=== PATIENT | female | born 1955 | race Caucasian/White ===

== ENCOUNTER 2020-10-21 09:49 | Outpatient (REF) | payer MEDICARE, SELFPAY ==
[2020-10-21 12:21] LABS: Cholesterol 252 mg/dL; HDL Cholesterol 58 mg/dL; LDL Cholesterol Calculated 179 mg/dl; Triglycerides 78 mg/dL
== END 2020-10-21 09:50 | disposition home or self-care (01) ==
LOC: HO.MANLDS 09:49
PROVIDERS: PCP Internal Medicine; Visit Provider Physician Assistant
DX: E78.5 Hyperlipidemia, unspecified (principal)
CPT/HCPCS: 36415; 80061

== ENCOUNTER 2021-08-04 16:19 | Outpatient (REF) | payer MEDICARE, SELFPAY ==
[2021-08-04 18:05] LABS: Appearance Urine CLEAR; Color Urine STRAW; Glucose Urine UA NEG (NEG); Leukocyte Esterase Urine NEG (NEG); Nitrite Urine NEG (NEG); Specific Gravity - Urine <= 1.005 (1.005-1.025); Urine Blood NEG (NEG); Urine Ketones NEG (NEG); Urine Protein NEG (NEG-TRACE)
[2021-08-04 18:39] LABS: Free T4 (Free Thyroxine) 1.19 ng/dL (0.71-1.85); Thyroid Stimulating Hormone 0.76 uIU/mL (0.32-4.0)
== END 2021-08-04 16:20 | disposition home or self-care (01) ==
LOC: HO.MANLDS 16:19
PROVIDERS: PCP Physician Assistant; Visit Provider Physician Assistant
DX: E03.8 Other specified hypothyroidism (principal); R30.0 Dysuria
CPT/HCPCS: 36415; 81003; 84439; 84443

== ENCOUNTER 2021-08-09 09:35 | Outpatient (REF) | payer MEDICARE, SELFPAY ==
[2021-08-09 11:03] LABS: MANUAL DIFF FLAG NO
[2021-08-09 11:15] LABS: Basophils Percent Auto 0.2 % (0-2); Eosinophils Absolute Auto 0.2 X10*3/uL (0.0-0.4); Eosinophils Percent Auto 3.5 % (0-4); Hematocrit 35.3 % (37.0-47.0); Hemoglobin 11.4 g/dl (12.0-16.0); Imm Gran Abs Auto 0.01 X10*3/uL (0.00-0.03); Imm Gran Pct Auto 0.2 % (0.0-0.4); Lymphocytes Absolute Auto 1.3 X10*3/uL (1.2-4.9); Lymphocytes Percent Auto 28.1 % (20-40); Mean Corpuscular HGB Conc 32.3 g/dl (31.0-35.0); Mean Corpuscular Hemoglobin 31.5 pg (27.0-33.0); Mean Corpuscular Volume 97.5 fL (80.0-98.0); Mean Platelet Volume 9.9 fL (9.4-12.3); Monocytes Absolute Auto 0.4 X10*3/uL (0.1-1.2); Monocytes Percent Auto 8.8 % (2-11); Neutrophils Absolute Auto 2.7 x10*3/uL (2.0-8.3); Neutrophils Percent Auto 59.2 % (45-73); Platelet Count 245 X10*3/uL (160-400); Red Blood Count 3.62 X10*6/uL (4.20-5.50); Red Cell Distribution Width 13.7 % (11.0-16.0); White Blood Count 4.5 X10*3/uL (4.8-10.8)
[2021-08-09 11:18] LABS: Alanine Aminotransferase 14 U/L (0-31); Albumin Level 3.9 g/dL (3.5-5.0); Alkaline Phosphatase 45 U/L (39-117); Anion Gap 10 (12-20); Aspartate Amino Transferase 17 U/L (5-31); Bilirubin Total 0.6 mg/dL (0.0-1.0); Blood Urea Nitrogen 20 mg/dL (9-16); Calcium 9.3 mg/dL (8.4-10.2); Carbon Dioxide 30 mmol/L (22-29); Chloride 104 mmol/L (96-108); Cholesterol 256 mg/dL; Estimated Glomerular Filt Rate > 60; Glucose Fasting 84 mg/dL (60-99); HDL Cholesterol 65 mg/dL; LDL Cholesterol Calculated 174 mg/dl; Potassium 4.3 mmol/L (3.3-5.1); Sodium 140 mmol/L (135-145); Total Protein 6.3 g/dL (6.5-8.0); Triglycerides 86 mg/dL
== END 2021-08-09 09:36 | disposition home or self-care (01) ==
LOC: HO.MANLDS 09:35
PROVIDERS: PCP Physician Assistant; Visit Provider Physician Assistant
DX: Z00.00 Encounter for general adult medical examination without abnormal findings (principal); Z13.6 Encounter for screening for cardiovascular disorders
CPT/HCPCS: 36415; 80053; 80061; 85025

== ENCOUNTER 2021-11-15 09:54 | Outpatient (REF) | payer MEDICARE, SELFPAY | END 2021-11-15 09:55 | disposition home or self-care (01) | LOC: HO.MANLNP 09:54 | PROVIDERS: PCP Physician Assistant; Visit Provider Physician Assistant | DX: R30.0 Dysuria (principal) | CPT/HCPCS: 87086 ==

== ENCOUNTER 2023-12-06 14:17 | Outpatient (REF) | payer MEDICARE, SELFPAY ==
[2023-12-06 17:23] LABS: MANUAL DIFF FLAG NO
[2023-12-06 17:35] LABS: Basophils Percent Auto 0.3 % (0-2); Eosinophils Absolute Auto 0.2 X10*3/uL (0.0-0.4); Eosinophils Percent Auto 2.5 % (0-4); Hematocrit 34.1 % (37.0-47.0); Hemoglobin 11.5 g/dl (12.0-16.0); Imm Gran Abs Auto 0.02 X10*3/uL (0.00-0.03); Imm Gran Pct Auto 0.3 % (0.0-0.4); Lymphocytes Absolute Auto 1.9 X10*3/uL (1.2-4.9); Mean Corpuscular HGB Conc 33.7 g/dl (31.0-35.0); Mean Corpuscular Hemoglobin 32.5 pg (27.0-33.0); Mean Corpuscular Volume 96.3 fL (80.0-98.0); Mean Platelet Volume 10.3 fL (9.4-12.3); Monocytes Absolute Auto 0.4 X10*3/uL (0.1-1.2); Monocytes Percent Auto 6.8 % (2-11); Neutrophils Absolute Auto 3.8 x10*3/uL (2.0-8.3); Neutrophils Percent Auto 60.1 % (45-73); Platelet Count 236 X10*3/uL (160-400); Red Blood Count 3.54 X10*6/uL (4.20-5.50); Red Cell Distribution Width 13.5 % (11.0-16.0); White Blood Count 6.3 X10*3/uL (4.8-10.8)
[2023-12-06 18:10] LABS: Alanine Aminotransferase 12 U/L (0-31); Albumin Level 3.8 g/dL (3.5-5.0); Alkaline Phosphatase 47 U/L (39-117); Anion Gap 11 (12-20); Aspartate Amino Transferase 16 U/L (5-31); Bilirubin Total 0.3 mg/dL (0.0-1.0); Blood Urea Nitrogen 23 mg/dL (9-16); Calcium 9.2 mg/dL (8.4-10.2); Carbon Dioxide 28 mmol/L (22-29); Chloride 105 mmol/L (96-108); Estimated Glomerular Filt Rate 60; Glucose Random 79 mg/dL (60-115); Potassium 4.5 mmol/L (3.3-5.1); Sodium 139 mmol/L (135-145); Total Protein 6.7 g/dL (6.5-8.0)
== END 2023-12-06 14:18 | disposition home or self-care (01) ==
LOC: HO.MANLDS 14:17
PROVIDERS: Visit Provider Physician Assistant
DX: Z00.00 Encounter for general adult medical examination without abnormal findings (principal)
CPT/HCPCS: 36415; 80053; 85025

== ENCOUNTER 2025-07-22 11:36 | Outpatient (REF) | payer MEDICARE, SELFPAY ==
--- OUTSIDE RECORDS SUMMARY | 2010-05-05 23:00 | XMS_ITS | Encounter Summary ---
Author Organization [facility] Address [address] [place] [address] [place] [address] Phone Care Team Providers Care Fraud Examiner Name Role Phone Unavailable Primary Care Provider Unavailabl e Encounter Details Date Type Department Care Team (Late Contact Info) Description 05/06/2010 Hospital Encounter [facility],Outside Imaging [address] [place] [address] Unknown, Unknown, MD Social History Tobacco Use Types Packs/Day Years Used Date Smoking Tobacco: Never Smokeless Tobacco: Never Alcohol Use Standard Drinks/Week Comments Yes 1 (1 standard drink = 0.6 oz pur e alcohol) once a week Education Answer Date Recorded Are you interested in more education? Not on park e 12/29/2022 Are you concerned about learning? Not on file 12/29/2022 No 12/29/2022 No 12/29/2022 Digital Access Answer Date Recorded No 01/30/2023 No 01/30/2023 Reliable internet access at home? Not on file 01/30/2023 Device with a working camera? Not on file Comments No Sex and Gender Information Value Date Recorded Sex Assigned at Not on file Legal Sex Female 7:59 PM EST Gender Identity Not on file Sexual Orientation Not on file documented as of this encounter Plan of Treatment Upcoming Encounters Date Type Department Care Team (Late st Contact Info) Description 09/08/2025 9:00 AM EST Office Visit [facility] Orthopedics & Sports Medicine [address] [place] [address] Arminda Guillen MD 4 [facility] [place] [address] 11/27/2025 10:15 AM EDT Office Visit [facility]ics & Sports Medicine [address] [place] [address] Arminda Guillen MD [address] [place] [address] Orthoped[facility] & [place], [place] [address] [email or web address] documented as of this encounter Procedures Procedure Name Priority Date/Time Associated Diagnosis Comments MRI UPPER EXTREMITY OUTSIDE (NO INTERPRETATION) Routine 05/06/2010 12:00 AM EDT documented in this encounter Results * MRI Outside Upper Extremity (No Interpretation) (05/06/2010 12:00 AM EDT) Narrative SYSTEMGENERATED, DOCUMENTATION - 04/13/2022 1:52 PM EDT This study is for PACS storage only and not for interpretation. us Unknown Unknown MD [facility] OUTSIDE IMAGING W/OUT INT ERPRETATION Final Result documented in this encounter Visit Diagnoses Not on filedocumented in this encounter Additional Source Comments The information contained in this document represents components of the legal health record. It is not the complete legal health record.[facility]
[2025-07-22 13:59] LABS: MANUAL DIFF FLAG NO
[2025-07-22 14:31] LABS: Hematocrit 33.7 % (37.0-47.0); Hemoglobin 10.9 g/dl (12.0-16.0); Imm Gran Abs Auto 0.02 X10*3/uL (0.00-0.03); Imm Gran Pct Auto 0.4 % (0.0-0.4); Lymphocytes Absolute Auto 1.9 X10*3/uL (1.2-4.9); Mean Corpuscular HGB Conc 32.3 g/dl (31.0-35.0); Mean Corpuscular Hemoglobin 32.0 pg (27.0-33.0); Mean Corpuscular Volume 98.8 fL (80.0-98.0); NRBC Abs Auto 0.000 X10*3/uL (0.0-0.012); NRBC Pct Auto 0.0 /100WBC (0.0-0.2); Platelet Count 234 X10*3/uL (160-400); Red Blood Count 3.41 X10*6/uL (4.20-5.50); White Blood Count 5.3 X10*3/uL (4.8-10.8)
[2025-07-22 14:44] LABS: Alanine Aminotransferase 17 U/L (0-31); Albumin Level 4.0 g/dL (3.5-5.0); Alkaline Phosphatase 51 U/L (39-117); Anion Gap 10 (12-20); Aspartate Amino Transferase 23 U/L (5-31); Blood Urea Nitrogen 22 mg/dL (9-16); Calcium 9.1 mg/dL (8.4-10.2); Carbon Dioxide 26 mmol/L (22-29); Chloride 107 mmol/L (96-108); Cholesterol 208 mg/dL (<200); Estimated Glomerular Filt Rate 55; HDL Cholesterol 54 mg/dL (>40); Potassium 4.0 mmol/L (3.3-5.1); Sodium 139 mmol/L (135-145); Total Protein 6.5 g/dL (6.5-8.0); Triglycerides 81 mg/dL (<150)
[2025-07-22 14:59] LABS: Free T4 (Free Thyroxine) 1.10 ng/dL (0.71-1.85)
--- OUTSIDE RECORDS SUMMARY | 2025-07-23 02:38 | XMS_ITS | Encounter Summary ---
Author Organization [facility] Address [address] [place] [address] Phone Care Team Providers Care Closing Specialist Name Role Phone Linh Marcial Fuentes DO Primary Care Provider [phone] Marcial Melton DO Unavailable Tika Fitzgerald MINIATURE SET BUILDER Unavailable Virgie Lewis MINIATURE SET BUILDER Unavailable [phone] Erin Scott MINIATURE SET BUILDER Unavailable Stacy Schneider MINIATURE SET BUILDER Unavailable [phone] Jeannette Pacheco MD Unavailable Luz Maria Pro MINIATURE SET BUILDER Unavailable [phone] Anai Troncoso MINIATURE SET BUILDER Unavailable [phone] Mracial Melton DO Unavailable Marcial Melton DO Primary Care Provider [phone] Encounter Details Date Type Department Care Team (Late st Contact Info) Description 05/22/2019 Procedure Pass OR Admitting Dept - Virtual Department [address] [place] [address] Social History Tobacco Use Types Packs/Day Years Used Date Smoking Tobacco: Never Smokeless Tobacco: Never Alcohol Use Standard Drinks/Week Comments Yes 1 (1 standard drink = 0.6 oz pur e alcohol) once a week Comments No Sex and Gender Information Value Date Recorded Sex Assigned at Not on file Legal Sex Female 7:59 PM EST Gender Identity Not on file Sexual Orientation Not on file documented as of this encounter Plan of Treatment Upcoming Encounters Date Type Department Care Team (Late st Contact Info) Description 09/08/2025 9:00 AM EST Office Visit [facility] Orthopedics & Sports Medicine [address] [place] [address] Arminda Guillen MD [address] [place] [address] Orthopedics Sports [facility], [place] [address] 11/27/2025 10:15 AM EDT Office Visit [facility] Orthopedics & Sports [address] [address] Arminda Guillen MD [address] [place] [address] Orthopedics Sports [facility], [place] [address] documented as of this encounter Visit Diagnoses Not on filedocumented in this encounter Care Teams Closing Specialist Relationship Specialty Start Date End Date Marcial Melton DO PCP - General 03/04/14 04/02/25 Marcial Melton DO [address] [place] [address] PCP - General Internal Medicine 04/03/25 Marcial Melton DO Historical LMR Provider 06/25/17 Tika Fitzgerald NP [address] [address] Historical LMR Provider 06/25/17 2 Virgie Lewis, MINIATURE SET BUILDER [address] [place] [address] [email or web address] Historical LMR Provider 06/25/17 Erin Scott, MINIATURE SET BUILDER [address] [place] [address] [email or web address] Historical LMR Provider 06/25/17 2 Stacy Schneider, MINIATURE SET BUILDER [address] [place] [address] Historical LMR Provider 06/25/17 2 Jeannette Pacheco MD [address] [place] [address], [address] [place] [address] Historical LMR Provider 06/25/17 09/11/21 Luz Maria Pro NP 30 [place] [address] Historical LMR Provider 06/25/17 2 Anai Troncoso NP [address] [place] [address] Historical LMR Provider 06/25/17 2 Marcial Melton DO [address] [place] [address] [email or web address] Insurance Assigned Provider 01/05/19 10/04/19 documented as of this encounter Additional Source Comments The information contained in this document represents components of the legal health record. It is not the complete legal health record.[facility]
--- OUTSIDE RECORDS SUMMARY | 2025-07-23 02:39 | XMS_ITS | Encounter Summary ---
Author Organization [facility] Address [address] [place] [address] Phone Care Team Providers Care Paralegal Instructor Name Role Phone Linh Marcial Fuentes DO Primary Care Provider [phone] Marcial Melton DO Unavailable Tika Fitzgerald EXPERIENCE SPECIALIST Unavailable [phone] Virgie Lewis EXPERIENCE SPECIALIST Unavailable [phone] Erin Scott EXPERIENCE SPECIALIST Unavailable Stacy Schneider EXPERIENCE SPECIALIST Unavailable [phone] Jeannette Pacheco MD Unavailable Luz Maria Pro EXPERIENCE SPECIALIST Unavailable [phone] Anai Troncoso EXPERIENCE SPECIALIST Unavailable Gabrielledaphnie Marcial Fuentes DO Unavailable Bigda, Marcial Fuentes DO Primary Care Provider [phone] Encounter Details Date Type Department Care Team (Latest Contact Info) Description 10/11/2018 Transcribe Orders [facility] Main [address] [place] [address] Jamaica Berry PA-C [address] Ismael. [address] [place] [address] [email or web address] Routine medical exam (Primary Dx) Social History Tobacco Use Types Packs/Day Years [...] Description 09/08/2025 9:00 AM EST Office Visit [facility] Orthopedics & Sports Medicine [address] [place] [address] Arminda Guillen MD [address] [place] [address] Orthopedics Sports [facility], [place] [address] [email or web address] 11/27/2025 10:15 AM EDT Office Visit [facility] Orthopedics & Sports [address] [address] Arminda Guillen MD [address] [place], [place] [address]s Sports [facility], [place] [address] [email or web address] documented as of this encounter Results * Free T4 (10/11/2018 9:25 AM EST) FREE T4 1.6 0.9 - 1.7 ng/dL [facility] Blood 10/11/2018 9:25 AM EST 10/11/2018 9:31 AM EST December Jamal SIMON LAB BLOOD BKR ORDERABLES Fin al Result [facility] [address] [place] [address] * TSH (10/11/2018 9:25 AM EST) TSH 1.25 0.27 - 4.20 uIU/mL [facility] Blood 10/11/2018 9:25 AM EST 10/11/2018 9:31 AM EST [place] Jamal MULLERKevin LAB BLOOD BKR ORDERABLES Fin al Result Performing Organization Address City/[facility]/ZIP Co de Phone Number [address] [address] * 25-OH vitamin D (10/11/2018 9:25 AM EST) 25 [place] VIT D (TOTAL) 59 30 - 60 ng/mL [facility] Blood 10/11/2018 9:25 AM EST 10/11/2018 9:31 AM EST [facility] LAB BLOOD BKR ORDERABLES Fin al Result Performing Organization Address [facility] de Phone Number [address] [address] * (ABNORMAL) Lipid panel (10/11/2018 9:25 AM EST) HDL 60 mg/dL [facility] Comment: Interpretation <40 mg/dL: Low HDL cholesterol (major risk factor for CHD) Greater than or equal to 60 mg/dL: High HDL cholesterol ( negative risk factor for CHD) HDL - cholesterol is affected by a number of factors, e.g. smoking, excerise, hormones, sex and age. CHOLESTEROL 238 0 - 240 mg/dL [facility] TRIGLYCERIDES 73 30 - 160 mg/dL [facility] LDL 163(H) 50 - 129 mg/dL [facility] Comment: LDL levels in terms of risk for coronary heart disease: <100 mg/dL: Optimal 100-129 mg/dL: Near or above optimal 130-159 mg/dL: Borderline high 160-189 mg/dL: High >190 mg/dL: Very High CARDIAC RISK RATIO 4.0 3.3 - 4.4 C [facility] Blood 10/11/2018 9:25 AM EST 10/11/2018 9:31 AM EST [facility] Jamal MULLER LAB BLOOD BKR ORDERABLES Fin al Result [facility] [address] [place] [address] * (ABNORMAL) CBC and differential (10/11/2018 9:25 AM EST) WBC 4.03 3.40 - 11.20 K/uL [facility] RBC 3.54(L) 3.80 - 4.80 M/uL [facility] HGB 11.1(L) 12.0 - 15.0 g/dL [facility] HCT 33.5(L) 36.0 - 46.0 % [facility] PLT 247 130 - 400 K/uL [facility] MCV 94.6 79.0 - 98.0 fL [facility] MCH 31.4 27.0 - 34.8 pg [facility] MCHC 33.1 31.5 - 36.0 g/dL [facility] RDW 13.5 10.8 - 14.6 % [facility] MPV 10.2 9.4 - 12.4 fl [facility] NRBC 0.00 0.00 /100 WBCs [facility] ABSOLUTE NRBC 0.00 0.00 K/uL [facility] DIFF METHOD Auto [facility] NEUTS 46.0 45.30 - 77.70 % [facility] LYMPHS 41.7(H) 12.30 - 39.70 % [facility] MONOS 7.9 4.10 - 12.80 % [facility] EOS 3.5 0 - 7.2 % [facility] BASOS 0.7 0 - 2.80 % [facility] Granulocytes, immature (%) 0.2 0.0 - 0.9 % [facility] ABSOLUTE NEUTS 1.85 1.40 - 7.70 K/uL [facility] ABSOLUTE LYMPHS 1.68 0.60 - 3.20 K/uL [facility] ABSOLUTE MONOS 0.32 0.11 - 0.59 K/uL [facility] ABSOLUTE EOS 0.14 0.01 - 0.50 K/uL [facility] ABSOLUTE BASOS 0.03 0.00 - 0.08 K/uL [facility] Granulocytes, immature 0.01 0.00 - 0.05 K/uL [facility] Blood 10/11/2018 9:25 AM EST 10/11/2018 9:31 AM EST us December Jamal PA-C LAB BLOOD BKR ORDERABLES Fin al Result Performing Organization Address City/[facility]/ZIP Co de Phone Number [address] [address] * (ABNORMAL) Comprehensive metabolic panel (10/11/2018 9:25 AM EST) SODIUM 141 133 - 146 mmol/L [facility] POTASSIUM 4.3 3.3 - 5.1 mmol/L [facility] CHLORIDE 100 96 - 108 mmol/L [facility] CO2 29 21 - 35 mmol/L [facility] BUN 20(H) 6 - 19 mg/dL [facility] CREATININE 0.80 0.5 - 1.5 mg/dL [facility] GLUCOSE 81 70 - 99 mg/dL [facility] ALBUMIN 4.2 3.9 - 4.8 g/dL [facility] TOTAL PROTEIN 6.4(L) 6.5 - 8.0 g/dL [facility] CALCIUM 9.4 8.4 - 10.3 mg/dL [facility] ALKALINE PHOSPHATASE 41 39 - 117 U/L [facility] TOTAL BILIRUBIN 0.4 0.0 - 1.2 mg/dL [facility] AST 16 0 - 37 U/L [facility] ALT 10 0 - 40 U/L [facility] GLOBULIN 2.2 1 - 4.8 g/dL [facility] EGFR 77 >59 mL/min/1.7 3m2 [facility] Comment:If patient is black, multiply result by 1.159. Estimated glomerular filtration rate calculated using the CKD-EPI equation. ANION GAP 16 10 - 20 mmol/L [facility] Blood 10/11/2018 9:25 AM EST 10/11/2018 9:31 AM EST December Jamal PA-C LAB BLOOD BKR ORDERABLES Fin al Result [address] [place] [address] * Hepatitis C antibody, qualitative (10/11/2018 9:25 AM EST) HCV Negative Negative [facility] Comment: This is a screening test and should be confirmed with molecular testing Blood 10/11/2018 9:25 AM EST 10/11/2018 9:31 AM EST December Jamal SIMON LAB BLOOD BKR ORDERABLES Fin al Result [facility] [address] [place] [address] documented in this encounter Visit Diagnoses Diagnosis Routine medical exam- Primary Routine general medical examination at a health care facility documented in this encounter Care Teams Paralegal Instructor Relationship Specialty Start Date End Date Marcial Melton DO PCP - General 03/04/14 04/02/25 Marcial Melton DO [address] [place] [address] PCP - General Internal Medicine 04/03/25 Marcial Melton DO Historical LMR Provider 06/25/17 Tika Fitzgerald NP [address] [place] [address] Historical LMR Provider 06/25/17 2 Virgie Lewis NP [address] [place] [address] Historical LMR Provider 06/25/17 Erin Scott, EXPERIENCE SPECIALIST [address] [place] [address] [email or web address] Historical LMR Provider 06/25/17 2 Stacy Schneider, EXPERIENCE SPECIALIST [address] [place] [address] Historical LMR Provider 06/25/17 2 Jeannette Pacheco MD [address] [place] [address], [address] [place] [address] Historical LMR Provider 06/25/17 09/11/21 Luz Maria Pro NP [address] [place] [address] Historical LMR Provider 06/25/17 2 Anai Troncoso NP [address] [place] [address] Historical LMR Provider 06/25/17 2 Marcial Melton DO [address] [place] [address] Insurance Assigned Provider 01/05/19 10/04/19 documented as of this encounter Additional Source Comments The information contained in this document represents components of the legal health record. It is not the complete legal health record.[facility]
--- OUTSIDE RECORDS SUMMARY | 2025-07-23 02:39 | XMS_ITS | Continuity of Care Document ---
Author Organization [facility], [facility] Address [address] [place] [address] Assessment No assessment recorded. Plan of Treatment Reminders Order Date Submit Date Provider Last Modified By Organization Details Last Modified Time Details Appointments ANNUAL EXAM 2025 01:30P M RENZO GRAHAM Not available Not available Not available Lab None recorded. Referral None recorded. Procedures None recorded. Surgeries None recorded. Imaging XR, lumbosacr al spine, 2 or 3 view 2024 025 [email or web address] [facility], [address] [place], [address], 07/22/2025 15:08:28 XR, hip + pelvis, bilateral , 3 or 4 view 2024 025 [email or web address] [facility], [address] [place], [address], 07/22/2025 15:08:28 Medication Orders None recorded. Patient TargetsNo targets recorded. Patient InstructionsNo instructions recorded. Reason for Referral None Reported. Problems Name Problem SNOMED Code Status Onset Date Resolution Date Notes Provider Name and Address Organization Details Recorded Time Polyp of sigmoid colon 663768571 Active 2016 LORIE Berry [address] [place], [address], [facility] 9 12:09:22 Hashimot o thyroidi tis 71085672 Active 2018 Leora hill [facility] 9 13:57:59 Seasonal affectiv e disorder 866634217 Active 2018 [facility]ressio n [facility] 9 13:58:56 Joint injury 040211605 Active 2018 B/L SI joint strain [facility] 9 14:01:52 Asthma 155165214 Active 2018 2/2 allergies - Controlle d Leorajessica Stafford [facility] 9 14:02:41 Basal cell carcinom a of skin 257229635 Active 2018 Leorajessica Stafford [facility] 9 14:02:53 Hyperlip idemia 10668049 Active 2018 Leorajessica Malloyadam [facility] 9 14:03:01 Anxiety 74613232 Active 2018 Leora Gamaadam [facility] 9 14:03:09 Weight loss 53616662 [facility] 9 14:14:53 Tinnitus 19346715 Active 2018 Leora Gamaadam [facility] 9 14:15:49 Osteopen ia 827413639 Active 2018 Leorajessica Stafford [facility] 9 14:16:02 Osteoart hritis of knee 095535497 Active 2018 Right Leorajessica Stafford [facility] 9 14:16:55 Menopaus e Active 2018 48 years Leorajessica Stafford [facility] 9 14:17:14 Cyst of thyroid 95306062 Active 2018 s/p partial thyroidec pj, found to be benign December LORIE Berry [address] [place], [address], [facility] 9 12:04:12 Hypothyr oidism 35453589 Active 2021 RENZO GRAHAM [address] [place], [address], [facility] 2 15:01:26 Dysuria 64520658 Active 2022 RENZO GRAHAM [address] [place], [address], [facility] 3 11:01:31 COVID-19 026839473 Active 2022 RENZO GRAHAM [address] [place] [address], [address], [facility] 3 15:21:05 Fatigue 64283582 Active 2022 RENZO GRAHAM [address] [place] [address], [address], [facility] 3 15:26:23 Bilatera l tinnitus 10131977280 02 Active 2022 RENZO GRAHAM [address] [place] [address], [address], [facility] 3 16:09:21 Low back pain 128051859 Active 2022 RENZO GRAHAM [address] [place] [address], [address], [facility] 3 16:13:33 Pain of right knee joint 88490058455 4100 Active 2022 RENZO GRAHAM [address] [place] [address], [address], [facility] 3 16:19:18 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 50270778244 9109 Active 2023 RENZO GRAHAM [address] [place] [address], [address], [facility] 4 13:44:40 Overacti ve urinary bladder 240303047 Active 2023 RENZO GRAHAM [address] [place] [address], [address], [facility] 5 13:44:42 Acute urinary tract infectio n 385048883 Active 2023 RENZO GRAHAM [address] [place], [address], [facility] 4 10:40:08 Seasonal allergy 817484435 Active 2024 RENZO GRAHAM [address] [place], [address], [facility] 5 10:37:01 Panic disorder 891432133 Active 2024 RENZO GRAHAM [address] [place], [address], [facility] 5 10:41:34 Sciatica 80379617 Active 2024 RENZO GRAHAM [address] [place], [address], [facility] 5 11:02:51 Acute bacteria l bronchit is 755783405 Active 2024 RENZO GRAHAM [address] [place], [address], [facility] 5 13:42:18 Acute cough Active 2024 RENZO GRAHAM [address] [place], [address], [facility] 5 11:38:32 Acute bronchit is 71135400 Active 2024 RENZO GRAHAM [address] [place], [address], [facility] 5 08:21:18 Tendinit is 47692555 Active 2024 RENZO GRAHAM [address] [place], [address], [facility] 5 11:26:42 Lumbar radiculo zechariah 781340515 Active 2024 RENZO GRAHAM [address] [place], [address], [facility] 5 11:27:20 Problem Notes None recorded. Procedures Surgical History Date Name Laterality Status Provider Name and Address Organization Details Recorded Time 8 Most [facility] 14:43:07 7 [facility] 14:43:48 Imaging Results None recorded. Procedure Notes None recorded. Medical Equipment None Reported. Allergies Allergen ID Allergen Name Allergen Category Reaction Reaction Severity Criticality Documentation Date Start Date Code Code System Note Provider Name and Address Organization Details Recorded Time 2783 amoxicill in medicatio n Not available Not available Not available 10/09/2018 723 RxNorm [facility] 9 13:52:26 2784 Substance with sulfonami de structure and antibacte rial mechanism of action (substanc e) medicatio n nausea Not available Not available 10/09/2018 59977 8003 SNOMED [facility] 9 13:52:40 6347 Macrobid medicatio n Not available Not available Not available 10/05/2022 70819 1 RxNorm RENZO GRAHAM [address] [place], [address], [facility] 3 11:12:31 9720 Bactrim medicatio n Not available Not available Not available 07/22/20252024 22791 9 RxNorm Not Available [employer] - External Data [employer] - prod 5 03:48:09 9723 sulfameth oxazole / trimethop rim medicatio n Not available Not available Not available 07/22/20252019 49916 RxNorm unrec ogniz ed react ion (text : GI Upset , code: 30367 005) (from exter nal sourc e) Not Available [employer] - External Data Service - prod 5 03:49:12 9724 nitrofura ntoin, macrocrys tals / nitrofura ntoin, monohydra te medicatio n Not available Not available Not available 07/22/20252020 46000 2 RxNorm State s in Janua ry 21 after rx for uti had itchi ng all over body Not Available [employer] - External Data Service - prod 5 03:49:12 9725 sulfadiaz ine medicatio n Not available Not available Not available 07/22/20252021 84830 RxNorm Not Available [employer] External Data Service - prod 5 03:49:12 Medications Name Sig Start Date Stop Date Status Note LastModified by Organization Details LastModified Time budesonid e 32 mcg/actua tion nasal spray Take 2 sprays every day by nasal route for 30 days. 07/22 completed Not Available Not Available Not Available diclofena c 3 % topical gel 05/10 completed Not Available Not Available Not Available venlafaxi ne ER 37.5 mg capsule,e xtended release 24 hr 05/10 completed Not Available Not Available Not Available Levoxyl 88 mcg tablet 10/10 completed Not Available Not Available Not Available prednison e 10 mg tablet PLEASE SEE ATTACHED FOR DETAILED DIRECTIO NS 07/22 completed Not Available Not Available Not Available venlafaxi ne ER 75 mg capsule,e xtended release 24 hr TAKE 1 CAPSULE BY MOUTH EVERYDAY AT BEDTIME active Not Available Not Available No t Available doxycycli ne hyclate 100 mg capsule TAKE 1 CAPSULE BY MOUTH TWICE A DAY FOR 10 DAYS 07/22 completed Not Available Not Available Not Available cefuroxim e axetil 250 mg tablet 10/10 completed Not Available Not Available Not Available clindamyc in HCl 300 mg capsule PLEASE SEE ATTACHED FOR DETAILED DIRECTIO NS 12/05 completed Not Available Not Available Not Available hydrocort isone-pra moxine 2.5 %-1 % rectal cream INSERT 1 APPLICAT ION RECTALLY THREE TIMES A DAY 08/04 completed Not Available Not Available Not Available azithromy kayla 250 mg tablet TAKE 2 TABLETS BY MOUTH TODAY, THEN TAKE 1 TABLET DAILY FOR 4 DAYS DIRECTED 07/22 completed Not Available Not Available Not Available meloxicam 15 mg tablet 10/10 completed Not Available Not Available Not Available fluoroura cil 5 % topical cream 08/04 completed Not Available Not Available Not Available Proctocor t 1 % topical cream APPLY A THIN LAYER TO THE AFFECTED AREA(S) BY TOPICAL ROUTE 2 TIMES PER DAY x 7 days 07/28 completed Not Available Not Available Not Available acetamino phen 300 mg-codein e 30 mg tablet TAKE 1 TO 2 TABLETS EVERY 6 HOURS NEEDED FOR PAIN 12/05 completed Not Available Not Available Not Available ciproflox acin 250 mg tablet TAKE 1 TABLET BY MOUTH EVERY 12 HOURS FOR 5 DAYS 12/05 completed Not Available Not Available Not Available ciproflox acin 500 mg tablet TAKE 1 TABLET BY MOUTH EVERY 12 HOURS FOR 10 DAYS 12/25 completed Not Available Not Available Not Available sulfameth oxazole 800 mg-trimet hoprim 160 mg tablet 10/10 completed Not Available Not Available Not Available meloxicam 7.5 mg tablet 03/11 completed Not Available Not Available Not Available levothyro xine 100 mcg tablet TAKE 1 TABLET BY MOUTH 6 DAYS A WEEK active Not Available Not Available No t Available lorazepam 0.5 mg tablet TAKE 1 TABLET BY MOUTH TWICE A DAY NEEDED FOR 15 DAYS active Not Available Not Available No t Available benzonata te 100 mg capsule 10/10 completed Not Available Not Available Not Available cephalexi n 500 mg capsule TAKE 1 CAPSULE BY MOUTH THREE TIMES A DAY FOR 10 DAYS 07/22 completed Not Available Not Available Not Available oxybutyni n chloride ER 5 mg tablet,ex tended release 24 hr TAKE 1 TABLET BY MOUTH EVERY DAY FOR 30 DAYS 12/25 completed Not Available Not Available Not Available codeine 10 mg-guaife nesin 100 mg/5 mL oral liquid Take 10 mL every 4 hours by oral route as needed for 7 days. 05/16 completed Not Available Not Available Not Available mirtazapi ne 15 mg tablet TAKE 1 TABLET EVERY DAY AT BEDTIME *NEEDS APPT FOR FURTHER REFILLS CALL OFFICE* active Not Available Not Available No t Available metoprolo l succinate ER 25 mg tablet,ex tended release 24 hr 1 TABLET EVERY DAY AT BEDTIME active Not Available Not Available No t Available doxepin 5 % topical cream 05/10 completed Not Available Not Available Not Available naproxen 500 mg tablet 10/10 completed Not Available Not Available Not Available nabumeton e 500 mg tablet TAKE 1 TABLET BY MOUTH TWICE A DAY 12/25 completed Not Available Not Available Not Available nitrofura ntoin monohydra te/macroc rystals 100 mg capsule Take 1 capsule every 12 hours by oral route for 7 days. 12/05 completed Not Available Not Available Not Available solifenac in 5 mg tablet TAKE 1 TABLET BY MOUTH EVERY DAY NEEDED 07/22 completed Not Available Not Available Not Available venlafaxi ne ER 75 mg tablet,ex tended release 24 hr 1 po qd 08/04 completed anxiety Not Available Not Available Not Available venlafaxi ne ER 37.5 mg tablet,ex tended release 24 hr 10/10 completed Not Available Not Available Not Available Lipo-Flav onoid Plus 200 mg-100 mg tablet TAKE 1 TABLET BY MOUTH EVERY DAY FOR 30 DAYS 12/05 completed Not Available Not Available Not Available GaviLyte- G 236 gram-22.7 4 gram-6.74 gram-5.86 gram oral solution 10/10 completed Not Available Not Available Not Available Flucelvax Quad 8026-7815 (PF) 60 mcg (15 mcg x 4)/0.5 mL IM syringe 08/04 completed Not Available Not Available Not Available Fluzone High-Dose (PF) 180 mcg/0.5 mL intramusc ular syringe 08/04 completed Not Available Not Available Not Available Fluzone High-Dose Quad (PF) 240 mcg/0.7 mL IM syringe PHARMACY ADMINIST ERED 08/04 completed Not Available Not Available Not Available QuickVue At-Home COVID-19 Test kit REFER TO [employer]ISH[employer] IONS INCLUDED IN PACKAGIN G 12/05 completed Not Available Not Available Not Available Paxlovid 300 mg (150 mg x 2)-100 mg tablets in a dose pack TAKE 3 TABLETS BY MOUTH TWICE A DAY FOR 5 DAYS 12/05 completed Not Available Not Available Not Available Vitals Date Recorded Body height Body mass index (BMI) Body weight Oxygen saturation Oxygen saturation in Arterial blood by Pulse oximetry Heart rate Systolic And Diastolic Provider Name and Address Organization Details Last Updated DateTime 5 161.29 cm 26.3 kg/m2 73951.4 5 g 98 % 98 % 70 /min 108/70 mm[Hg] [facility] 5 11:03:03 Social History Question Answer Notes LastModified by Organizat ion Details LastModified Time Tobacco Smoking Status Never Smoker Not Available [employer] 07/07/2020 03:36:23 What Was The Date Of Your Most Recent Tobacco Screening? 07/22/2025 [email or web address] Information not available 07/22/2025 Sex: Unknown Functional Status Question Answer Note LastModified by Organization D etails LastModified Time Do you or have you ever used any other forms of tobacco or nicotine? No [email or web address] Information not available 08/01/2023 Mental Status None recorded. Family History Relationship Description Onset Age of this Age Resolved Age Notes LastModified by Organization Details LastModified Time Daughter Malignant neoplasm of breast 25 [email or web address] Not available 10/10 12:08:16 Daughter Hodgkin's disease (clinical) 17 [email or web address] Not available 02/2019 12:08:40 Medical History Condition Response Coronary Artery Disease N Other N Gout N Kidney Stones N Blood Diseases N Breast Cancer N Blood Transfusion N COPD N Depression N Lung Disease N Defects or Inherited Disease N Anxiety Disorder N Muscle, Joint, or Bone Problems N Obesity N Vision or Eye Problems N Arthritis N Infertility N Polyps N Mental Disorder N Cancer N Stroke N Varicosities N Endometriosis N Bladder or Kidney Problems N High Cholesterol N Liver Disease N Fibromyalgia N Headaches N Kidney Disease N Allergies/Hayfever N Heart Problems N Hospitalizations N Thyroid Problems N GI Problems N Skin Problems N Eating Disorder N Anemia N MRSA exposure N Constipation N Mental Illness N Ovarian Cancer N Diabetes N Seizures/Epilepsy N Tuberculosis N Congestive Heart Failure (CHF) N Eczema N Diverticulitis N Abuse/Domestic Violence N Asthma N Reflux/GERD N Hepatitis N Heart Disease N Pulmonary Embolism N Hypertension N Osteoporosis N Chicken Pox N Autism Spectrum Disorder (ASD) N Gynecological History Statement/Question Response Most Recent Mammogram 09/19/2017 Obstetrics History GPAL:G 0 P 0 0 0 0 Immunizations Vaccine Type Date Status Note Provider Nam e and Address Organization Details Recorded Time Influenza, split virus, quadrivalent, preservative 1 completed [place] [facility] 07/26/2021 09:05:45 COVID-19, mRNA, LNP-S, PF, 100 mcg/0.5mL dose or 50 mcg/0.25mL dose 1 completed [place] [facility] 07/26/2021 09:06:21 COVID-19, mRNA, LNP-S, PF, 100 mcg/0.5mL dose or 50 mcg/0.25mL dose 1 completed [place] [facility] 07/26/2021 09:06:30 COVID-19, mRNA, LNP-S, PF, 100 mcg/0.5mL dose or 50 mcg/0.25mL dose 1 completed [place] [facility] 07/26/2021 09:06:37 Influenza, split virus, quadrivalent, preservative 8 completed Kait Gencarelle sergio [facility] 03/11/2020 09:26:09 Tdap 3 completed Leora Stafford [facility] 10/02/2018 14:41:47 Past Encounters Encounter ID Performer Location Encounter Start Date Encounter Closed Date Diagnosis/Indication Diagnosis SNOMED-CT Code Diagnosis ICD10 Code Diagnosis IMO Codes Diagnosis Note [id number] Marcial [facility] [address] [facility] [address] 07/22/2025 10:46:41 07/22/2025 15:08:28 Depression screening 172783253 Z13.31 Tendinitis 30387507 M76. 892 7928404 Lumbar radiculopathy 128 781315 M54.16 651556 will set up with PT Health Concerns Section Related Observation LastModified by Organization Detai ls LastModified Time None Recorded Concern Status LastModified by Organization Details LastModified Time None Recorded Payers Encounter Date Sequence Insurance Name Policy Number Policy Plummer Covered Member ID Plummer Member ID Guarantor Name 07/22/2025 2 [place] [id number] Em Meneses [id number] Em Meneses 07/22/2025 1 [place] [facility] Em Meneses [id number] Em Meneses Notes Date Note Type Note Provider Name a nd Address Organization Details Recorded Time 07/22/2025 text/html ROS as noted in the HPI c/o leg and back pain the patient developed lower leg pain and back pain (she was having it prior to her trip to [place]) used ibuprofen and APAP to good effect, but did not last and pain came backL leg; the patient gets pain more in the the upper quadsworse after PT and walking the patient and I discussed optionswill set up with imaging?disc involvement vs tendinitis RENZO GRAHAM [address] [place] [address], [place], [address], [facility] 07/22/2025 11:32:28 OBGyn Episode No OBEpisode recorded.
--- OUTSIDE RECORDS SUMMARY | 2025-07-23 02:40 | XMS_ITS | Encounter Summary ---
Author Organization [facility] Address [address] [place] [address] Phone Care Team Providers Care Digital Print Operator Name Role Phone Linh Marcial Fuentes DO Primary Care Provider [phone] Marcial Melton DO Unavailable Tika Fitzgerald HYDRO GENERATION SUPERVISOR Unavailable Virgie Lewis HYDRO GENERATION SUPERVISOR Unavailable [phone] Erin Scott HYDRO GENERATION SUPERVISOR Unavailable Stacy Schneider HYDRO GENERATION SUPERVISOR Unavailable [phone] Jeannette Pacheco MD Unavailable Luz Maria Pro HYDRO GENERATION SUPERVISOR Unavailable [phone] Anai Troncoso HYDRO GENERATION SUPERVISOR Unavailable Marcial Melton DO Unavailable Bigda, Marcial Fuentes DO Primary Care Provider [phone] Encounter Details Date Type Department Care Team (Late st Contact Info) Description 10/10/2018 Ancillary Orders Virtual Department [address] [place], [place] [id number] Jamaica Berry, AURORA Paniagua. [email or web address]. [address] [place] [address] [email or web address] Osteopenia, unspecified location Social History Tobacco Use Types Packs/Day Years [...] Description 09/08/2025 9:00 AM EST Office Visit [facility] [address] [place] [address] Arminda Guillen MD [address] [place] [address] Orthopedics Sports [facility], [place] [address] 11/27/2025 10:15 AM EDT Office Visit [facility] [address] [place] [address] Arminda Guillen MD [address] [place] [address] Orthopedics Sports [facility], [place] [address] [email or web address] documented as of this encounter Results * BD DXA AXIAL (SPINE) WITH HIP (12/26/2018 8:41 AM EDT) Anatomical Region Laterality Modality Bone Density Bone Density 12/26/2018 8:48 AM EDT Impressions 12/26/2018 8:51 AM EDT Continued normal bone mineral density at all 3 measured sites. Mild decrease in right hip BMD. POS -[id number] Narrative 12/26/2018 8:51 AM EDT This is a 63-year-old female who reports no perceived height loss. No history of steroid use or hormone therapy. Daily calcium supplementation. Comparison is made to 04/15/2014. Evaluation of the lumbar spine and hips was performed and felt to be technically adequate. Total bone mineral density in the L1-L4 vertebral bodies was calculated at 1.055 gm/cm2 with a T score of 0.1. This falls within the WHO classification of normal. No significant change from 2013. Total bone mineral density in the right proximal femur was calculated at 0.835 gm/cm2 with a T-score of -0.9 falling within the WHO classification of normal. This is a statistically significant -3.5% decrease BMD since 2013. Total bone mineral density in the left proximal femur was calculated at 0.840 gm/cm2 with a T-score of -0.8 falling within the WHO classification of normal. No significant change from 2013. Procedure Note Bereket Urrutia MD - 12/26/2018 This is a 63-year-old female who reports no perceived heightloss. No history of steroid use or hormone therapy. Daily calcium supplementation. Comparison is made to 04/15/2014. Evaluation of the lumbar spine and hips was performed and felt to betechnically adequate. Total bone mineral density in the L1-L4 vertebral bodies was calculated at1.055 gm/cm2 with a T score of 0.1. This falls within the WHOclassification of normal. No significant change from 2013. Total bone mineral density in the right proximal femur was calculated at0.835 gm/cm2 with a T-score of -0.9 falling within the WHO classificationof normal. This is a statistically significant -3.5% decrease BMD since 2014. Total bone mineral density in the left proximal femur was calculated at0.840 gm/cm2 with a T-score of -0.8 falling within the WHO classificationof normal. No significant change from 2013. IMPRESSION: Continued normal bone mineral density at all 3 measured sites. Milddecrease in right hip BMD. POS -[id number] December Jamal SIMON IMG BD BONE DENSITY DEXA Fin al Result documented in this encounter Visit Diagnoses Diagnosis Osteopenia, unspecified location Osteopenia, unspecified location documented in this encounter Care Teams Digital Print Operator Relationship Specialty Start Date End Date Marcial Melton DO PCP - General 03/04/14 04/02/25 Marcial Melton DO [address] [place] [address] [place] [address] PCP - General Internal Medicine 04/03/25 Marcial Melton DO Historical LMR Provider 06/25/17 Tika Fitzgerald, LORIE [address] [place] [address] Historical LMR Provider 06/25/17 2 Virgie Lewis NP [address] [place] [address] Historical LMR Provider 06/25/17 Erin Scott HYDRO GENERATION SUPERVISOR [address] [place] [address] [email or web address] Historical LMR Provider 06/25/17 2 Stacy Schneider, HYDRO GENERATION SUPERVISOR [address] [place] [address] Historical LMR Provider 06/25/17 2 Jeannette Pacheco MD [address] [place] [address], [address] [place] [address] Historical LMR Provider 06/25/17 09/11/21 Luz Maria Pro HYDRO GENERATION SUPERVISOR [address] [place] [address] Historical LMR Provider 06/25/17 2 Anai Troncoso NP [address] [place] [address] Historical LMR Provider 06/25/17 2 Marcial Melton DO [address] [place] [address] [email or web address] Insurance Assigned Provider 01/05/19 10/04/19 documented as of this encounter Additional Source Comments The information contained in this document represents components of the legal health record. It is not the complete legal health record.[facility]
--- OUTSIDE RECORDS SUMMARY | 2025-07-23 02:40 | XMS_ITS | Data Portability ---
Author Organization [facility], Telehealth Patient Home Address [address] [place] [address] Assessment Encounter Date Assessment Date Assessment LastModified by Organization Details LastModified Time 12/25/2024 12/25/2024 will try herself off of the metoprolol and see if it helps, if not suggested tartrate [email or web address] Not available 12/25/2024 13:52:30 Plan of Treatment Reminders Order Date Submit Date Provider Last Modified By Organization Details Last Modified Time Details Appointments ANNUAL EXAM 2025 01:30P RENZO CAMPBELL Not available Not available Not available Lab CMP, serum or plasma 2024 025 MELANIYANNICK [facility], [address] [place] [address] [place], [address], 12/30/2024 15:48:41 CBC w/ auto diff 2024 025 OMAHA Panda [facility], [address] [place] [address] [place], [address], 12/30/2024 14:39:15 lipid panel, blood 2024 025 OMAHA Mosqueda [facility], [address] [place] [address] [place], [address], 12/30/2024 15:46:52 CBC w/ auto diff 2023 024 [facility], [address] [place] [address], [place], [address], 12/07/2023 11:22:56 CMP, serum or plasma 2023 024 [facility], [address] [facility], [place], [address], 12/07/2023 11:22:56 Referral ENT surgery referral 2022 023 [email or web address], [address] [place], [address], 08/04/2023 08:13:11 physical therapist referral 2022 023 [email or web address], [address] [place], [address], 08/04/2023 08:13:12 Procedures None recorded. Surgeries None recorded. Imaging XR, lumbosacr al spine, 2 or 3 view 2024 025 [email or web address] [facility], [address] [place], [address], 07/22/2025 15:08:28 XR, hip + pelvis, bilateral , 3 or 4 view 2024 025 [email or web address] [facility], [address] [place], [address], 07/22/2025 15:08:28 Medication Orders lorazepam 0.5 mg tablet 2024 025 [facility], [address] [place], [address], 01/28/2025 10:43:18 solifenac in 5 mg tablet 2024 025 [facility], [address] [place], [address], 07/22/2025 11:00:54 nabumeton e 500 mg tablet 2023 024 [email or web address] [facility], [address] [place], [address], 12/25/2024 13:49:53 oxybutyni n chloride ER 5 mg tablet,ex tended release 24 hr 2023 024 [email or web address] [facility], [address] [place], [address], 12/25/2024 13:45:16 Lipo-Flav onoid Plus 200 mg-100 mg tablet 2022 023 [email or web address] [facility], [address] [place], [address], 12/06/2023 13:36:07 budesonid e 32 mcg/actua tion nasal spray 2022 023 [email or web address] [facility]44[facility], [address] [place] [address], [address], 07/22/2025 11:00:09 Patient TargetsNo targets recorded. Patient InstructionsNo instructions recorded. Reason for Referral ENT Surgery Referral for Pete ateral tinnitus Referring Physician: Jane Baldwin, Internal Medicine, Encounter Date: 08/01/2023 Physical Therapist Referral for Low back pain low back pain, related to lumbar sprain and overuse Referring Physician: Jane Baldwin, Internal Medicine, Encounter Date: 08/01/2023 Results Created Date Observation Date Name Description Value Unit Range Abnormal Flag Note LastModifiedBy Organization Detail LastModifiedTime 09/01/2009/01/2023 MAMMsherry Alves digit al, bilat eral No observ ation record ed. [email or web address] [facility] [address], [place], [address], 09/02/2023 09:24:10 09/03/20 24 09/03/2024 MAMMsherry Alves digit al, bilat eral No observ ation record ed. [email or web address] Not Available 2024 09:42:53 Result Notes None recorded. Problems Name Problem SNOMED Code Status Onset Date Resolution Date Notes Provider Name and Address Organization Details Recorded Time Polyp of sigmoid colon 699315170 Active 2016 LORIE Berry [address] [employer], [place], [address], [facility] 9 12:09:22 Hashimot o thyroidi tis 24889187 Active 2018 [facility] 9 13:57:59 Seasonal affectiv e disorder 521043010 Active 2018 Seasonal depressio n [facility] 9 13:58:56 Joint injury 919371332 Active 2018 B/L SI joint strain [facility] 9 14:01:52 Asthma 421037558 Active 2018 2/2 allergies - Controlle d [facility] 9 14:02:41 Basal cell carcinom a of skin 889928535 Active 2018 Leora hill [facility] 9 14:02:53 Hyperlip idemia 79944600 Active 2018 [facility] 9 14:03:01 Anxiety 96073392 Active 2018 [facility] 9 14:03:09 Weight loss 83799771 Active 2018 Leora hill [facility] 9 14:14:53 Tinnitus 04461020 Active 2018 [facility] 9 14:15:49 Osteopen ia 891964993 Active 2018 Leora hill [facility] 9 14:16:02 Osteoart hritis of knee 720689295 Active 2018 Right Leorajessica hill [facility] 9 14:16:55 Menopaus e Active 2018 48 years [facility] 9 14:17:14 Cyst of thyroid 17607611 Active 2018 s/p partial thyroidec pj, found to be benign [place] RASHAUN BerryKELTON [address] [place], [address], [facility] 9 12:04:12 Hypothyr oidism 84124186 Active 2021 RENZO GRAHAM [address] [place], [address], [facility] 2 15:01:26 Dysuria 36633161 Active 2022 RENZO GRAHAM [address] [place], [address], [facility] 3 11:01:31 COVID-19 875059774 Active 2022 RENZO GRAHAM [address] [place], [address], [facility] 3 15:21:05 Fatigue 22548709 Active 2022 RENZO GRAHAM [address] [place], [address], [facility] 3 15:26:23 Bilatera l tinnitus 98724241010 02 Active 2022 RENZO GRAHAM [address] [place], [address], [facility] 3 16:09:21 Low back pain 317770867 Active 2022 RENZO GRAHAM [address] [place], [address], [facility] 3 16:13:33 Pain of right knee joint 90548778659 4100 Active 2022 RENZO GRAHAM [address] [place], [address], [facility] 3 16:19:18 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 71713415245 9109 Active 2023 RENZO GRAHAM [address] [place], [address], [facility] 4 13:44:40 Overacti ve urinary bladder 943879568 Active 2023 RENZO GRAHAM [address] [place], [address], [facility] 5 13:44:42 Acute urinary tract infectio n 502663332 Active 2023 RENZO GRAHAM [address] [place], [address], [facility] 4 10:40:08 Seasonal allergy 408619096 Active 2024 RENZO GRAHAM [address] [place], [address], [facility] 5 10:37:01 Panic disorder 240474779 Active 2024 RENZO GRAHAM [address] [place], [address], [facility] 5 10:41:34 Sciatica 93267953 Active 2024 RENZO GRAHAM [address] [place] [address], [address], [facility] 5 11:02:51 Acute bacteria l bronchit is 988671814 Active 2024 RENZO GRAHAM [address] [place] [address], [address], [facility] 5 13:42:18 Acute cough Active 2024 RENZO GRAHAM [address] [place] [address], [address], [facility] 5 11:38:32 Acute bronchit is 90607174 Active 2024 RENZO GRAHAM [address] [place] [address], [address], [facility] 5 08:21:18 Tendinit is 47957521 Active 2024 RENZO GRAHAM [address] [place], [address], [facility] 5 11:26:42 Lumbar radiculo zechariah 416019126 Active 2024 RENZO GRAHAM [address] [place], [address], [facility] 5 11:27:20 Problem Notes None recorded. Procedures Surgical History Date Name Laterality Status Provider Name and Address Organization Details Recorded Time 8 Most Recent Mammogram completed [facility] 10/02/2018 14:43:07 7 Colonoscopy completed [facility] 10/02/2018 14:43:48 Imaging Results None recorded. Procedure Notes None recorded. Medical Equipment None Reported. Allergies Allergen ID Allergen Name Allergen Category Reaction Reaction Severity Criticality Documentation Date Start Date Code Code System Note Provider Name and Address Organization Details Recorded Time 2783 amoxicill in medicatio n Not available Not available Not available 10/09/2018 723 Rx[facility] 9 13:52:26 2784 Substance with sulfonami de structure and antibacte rial mechanism of action (substanc e) medicatio n nausea Not available Not available 10/09/2018 95390 8003 SNOMED [facility] 9 13:52:40 6347 Macrobid medicatio n Not available Not available Not available 10/05/2022 54391 1 RxNorm RENZO GRAHAM [address] [place], [address], [facility] 3 11:12:31 9720 Bactrim medicatio n Not available Not available Not available 07/22/20252024 02949 9 RxNorm Not Available melani - External Data Service - prod 5 03:48:09 9723 sulfameth oxazole / trimethop rim medicatio n Not available Not available Not available 07/22/20252019 75563 RxNorm unrec ogniz ed react ion (text : GI Upset , code: 50669 005) (from [facility]) Not Available melani - External Data Service - prod 5 03:49:12 9724 nitrofura ntoin, macrocrys tals / nitrofura ntoin, monohydra te medicatio n Not available Not available Not available 07/22/20252020 07197 2 RxNorm State s in Janua ry 21 after rx for uti had itchi ng all over body Not Available melani - External Data Service - prod 5 03:49:12 9725 sulfadiaz ine medicatio n Not available Not available Not available 07/22/20252021 02388 RxNorm Not Available melani - External Data [...] PLEASE SEE ATTACHED FOR DETAILED DIRECTIO NS 04/03 /2024 completed Not Available Not Available Not Available [...] Available Not Available Not Available Flucelvax Quad 0009-9143 (PF) 60 mcg (15 mcg x 4)/0.5 mL IM syringe 08/04 completed Not Available Not Available Not Available Fluzone High-Dose (PF) 180 mcg/0.5 mL intramusc ular syringe 08/04 completed Not Available Not Available Not Available Fluzone High-Dose Quad (PF) 240 mcg/0.7 mL IM syringe PHARMACY ADMINIST ERED 08/04 completed Not Available Not Available Not Available [employer] At-Home COVID-19 Test kit REFER TO MANUFACT URER'S INSTRUCT IONS INCLUDED IN PACKAGIN G 12/05 completed Not Available Not Available Not Available Paxlovid 300 mg (150 mg x 2)-100 mg tablets in a dose pack TAKE 3 TABLETS BY MOUTH TWICE A DAY FOR 5 DAYS 12/05 completed Not Available Not Available Not Available Vitals Date Recorded Body height Body mass index (BMI) Body weight Heart rate Oxygen saturation Oxygen saturation in Arterial blood by Pulse oximetry Systolic And Diastolic Provider Name and Address Organization Details Last Updated DateTime 4 161.29 cm 27.4 kg/m2 95872.7 2 g 71 /min 98 % 98 % 118/72 mm[Hg] Oscar Carpenter [facility] 4 13:34:52 Date Recorded Body height Body mass index (BMI) Body weight Heart rate Oxygen saturation Oxygen saturation in Arterial blood by Pulse oximetry Systolic And Diastolic Provider Name and Address Organization Details Last Updated DateTime 5 161.29 cm 26.6 kg/m2 69406.4 8 g 85 /min 95 % 95 % 104/62 mm[Hg] Ct Arteaga [facility] 5 13:35:42 Date Recorded Body height Body mass index (BMI) Body weight Heart rate Oxygen saturation Oxygen saturation in Arterial blood by Pulse oximetry Systolic And Diastolic Provider Name and Address Organization Details Last Updated DateTime 5 161.29 cm 26.5 kg/m2 79234.3 2 g 84 /min 96 % 96 % 118/74 mm[Hg] Ct Arteaga [facility] 5 10:27:05 Date Recorded Body height Body mass index (BMI) Body weight Oxygen saturation Oxygen saturation in Arterial blood by Pulse oximetry Heart rate Systolic And Diastolic Provider Name and Address Organization Details Last Updated DateTime 5 161.29 cm 26.3 kg/m2 31364.4 5 g 98 % 98 % 70 /min 108/70 mm[Hg] JERE JACKMAN [facility] 5 11:03:03 Date Recorded Body height Body mass index (BMI) Body weight Heart rate Systolic And Diastolic Provider Name and Address Organization Details Last Updated DateTime 08/01/2023 160.02 cm 25.9 kg/m2 50806.49 g 73 /min 100/60 mm[Hg] Leigh Ann Larsonmond [facility] 08/01/2023 16:04:05 Social History Question Answer Notes LastModified by [...] other forms of tobacco or nicotine? No [email or web address] Information not available 08/01/2023 Mental Status None [...] N Kidney Stones N Blood Diseases N Blood Transfusion N COPD N Depression N Anxiety Disorder N Muscle, Joint, or Bone Problems N Obesity N Vision or Eye Problems N Arthritis N Infertility N Polyps N Mental Disorder N Cancer N Stroke N Varicosities N Fibromyalgia N Headaches N Kidney Disease N Heart Problems N Hospitalizations N Skin Problems N Eating Disorder N MRSA exposure N Constipation N Tuberculosis N Asthma N Hepatitis N Pulmonary Embolism N Chicken Pox N Autism Spectrum Disorder (ASD) N Breast Cancer N Lung Disease N Defects or Inherited Disease N Endometriosis N Bladder or Kidney Problems N High Cholesterol N Liver Disease N Allergies/Hayfever N Thyroid Problems N GI Problems N Anemia N Mental Illness N Ovarian Cancer N Diabetes N Seizures/Epilepsy N Congestive Heart Failure (CHF) N Eczema N Diverticulitis N Abuse/Domestic Violence N Reflux/GERD N Heart Disease N Hypertension N Osteoporosis N Gynecological History Statement/Question Response Most Recent Mammogram 09/19/2017 Obstetrics History GPAL:G 0 P 0 0 0 0 Immunizations Vaccine Type Date Status Note Provider Nam e and Address Organization Details Recorded Time Influenza, split virus, quadrivalent, preservative completed [place] [facility] 07/26/2021 09:05:45 COVID-19, mRNA, LNP-S, PF, 100 mcg/0.5mL dose or 50 mcg/0.25mL dose 1 completed Nirmala hill [facility] 07/26/2021 09:06:21 COVID-19, mRNA, LNP-S, PF, 100 mcg/0.5mL dose or 50 mcg/0.25mL dose 1 completed Nirmala hill [facility] 07/26/2021 09:06:30 COVID-19, mRNA, LNP-S, PF, 100 mcg/0.5mL dose or 50 mcg/0.25mL dose 1 completed Nirm[place] hill [facility] 07/26/2021 09:06:37 Influenza, split virus, quadrivalent, preservative 8 completed Kait hill [facility] 03/11/2020 09:26:09 Tdap 3 completed Leora hill [facility] 10/02/2018 14:41:47 Past Encounters Encounter ID Performer Location Encounter Start Date Encounter Closed Date Diagnosis/Indication Diagnosis SNOMED-CT Code Diagnosis ICD10 Code Diagnosis IMO Codes Diagnosis Note [id number] Marcial Melton [facility] [address] [place] [address],[place] [address] 10/10/2018 11:38:50 10/10/2018 15:40:40 Adult health examination 067304426 Z00.00 given HCP paperwork healthy diet and exercise Active or passive immunization 283138249 Z23 flu utd tdap reccomend pneumonia and shingles vaccine Hyperlipidemia 72083677 E78.5 repeat labs Osteopenia 597540052 M85 .80 sees endo will get labs and bmd Asthma 487942031 J45.90 9 very rare sx Ronn thyroiditis 21 696470 E06.3 sees endo will get labs [id number] Marcial Melton [facility] [address] [facility],[place] [address] 05/10/2019 14:27:41 05/10/2019 15:06:07 Pre-surgery evaluation 436003566 Z01.818 labs reviewed has mild anemia but this is chronic/st able and actually slightly improved from prior labs mildly elevated BUN, but otherwise normal kidney function tests EKG was normal compared to prior ekg - she takes metoprolol for anxiety cleared for surgery she is getting over a cold, and is improved with no concerning sings on exam today, but will monitor for returning or worsening as an infection would require the surgery to be postponed Osteoarthr itis of knee 633186241 M17.9 Asthma 298520250 J45.90 9 [place] [id number] Marcial Melton [facility] [address] [facility],[place] [address] 03/11/2020 09:24:17 03/11/2020 11:25:15 Adult health examination 174551850 Z00.00 no concerns Active or passive immunization 475042276 Z23 needs to get tetanus shot as well needs to get Shringrix shot as well [id number] Marcial Melton [facility] [address] [facility],[place] [address] 07/28/2020 09:42:07 07/28/2020 10:33:42 Asthma 321703781 J45.909 stable Chronic sinusitis 536256 00 J32.9 will start on cipro and pred taper and see if improvemen t will due imaging if no improvemen t [id number] Marcial Melton [facility] [address] [facility],[place] [address] 08/04/2021 15:28:21 08/06/2021 16:43:28 Adult health examination 561501215 Z00.00 no concerns Screening for cardiovascular system disease 874552097 Z13.6 will fu with rechecks Hypothyroidism 79282290 E03.8 will fu with TSH checkwas dismissed from endo due to years of being stable Dysuria 31139733 R30.0 will sent out for urine [id number] Marcial Melton [facility] [address] [facility],[place] [address] 08/01/2023 15:53:18 08/02/2023 08:16:32 Bilateral tinnitus 1135555753 102 H93.13 will set up with lipo flavonoid and budesonide to try and see if it helps Low back pain 356574760 M54.59 will set up with PT Pain of ri ght knee joint 4870904538 85298 M25.561 will get info for ortho dr at [facility] [id number] Marcial Melton [facility] [address] [facility],[place] [address] 12/06/2023 13:30:46 12/06/2023 15:54:25 Active or passive immunization 400151803 Z23 stable Adult heal th examination 533467761 Z00.00 BP is excellent 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 1534224475 51727 M19.042 will set up with alt anti-infla mmatory Bilateral tinnitus 33221 44413 102 H93.13 will set up with lipo flavonoid and budesonide to try and see if it helps Overactive urinary bladder 854055256 N32.81 will start on medicine to see how you do [id number] Marcial Melton [facility] [address] [facility],[place] [address] 12/25/2024 13:30:16 12/25/2024 14:17:48 Active or passive immunization 867736866 Z23 stable General ex amination of patient 046007141 Z00.00 16143355 BP is excellent Overactive urinary bladder 184005867 N32.81 352492 will start on medicine to see how you do [id number] Marcial Melton [facility] [address] [facility] [address] 01/28/2025 10:18:34 01/28/2025 13:22:35 Seasonal allergy 057568374 J30.2 27818 start Mattie, if no improvemen t will add singulairw ill start on pataday Panic disorder 352116676 F41.0 73686 needs updated script for ativan [id number] Marcial Melton [facility] [address] [facility],[place] [address] 07/22/2025 10:46:41 07/22/2025 15:08:28 Depression screening 851925994 Z13.31 Tendinitis 51352330 M76. 473 7635205 Lumbar radiculopathy 128 480202 M54.16 107974 will set up with PT Health Concerns Section Related Observation LastModified by Organization Detai ls LastModified Time None Recorded Concern Status LastModified by Organization Details LastModified Time None Recorded Advance Directives Directive None Recorded Payers Insurance Date Sequence Insurance Name Policy Number Policy Plummer Covered Member ID Plummer Member ID Guarantor Name 07/22/2025 2 [place] [id number] Em Meneses [id number] Em Meneses 07/22/2025 1 [place] [employer] Em Meneses [id number] Em Meneses 07/22/2025 2 [place] [employer] (HMO) [id number] Em Meneses [id number] Em Meneses Notes Date Note Type Note Provider Name and Address Organization Details Recorded Time 3 text/html ROS as noted in the HPI c/o ringing in the ear tinnitus: agreed to try budesonide and lipo flavonoid supplement with ENT referral low back pain: lumbar spine sprain, agreed to PT for evaluation and treatment pain in the knee, needs replacement of the kneewill get info for the [place] [facility] for patientcall tomorrow RENZO GRAHAM [address] [place] [address], [address], [facility] 08/01/2023 16:24:35 4 text/html Annual WellnessReported by PatientSocial/Behaviora l HistoryFor diet and nutrition, patient reportshealthy diet,discussed vitamin and supplement use,discussed portion control,discussed maintaining calcium balance, anddiscussed diet improvement. For fracture risk, patient reportsno history of fractures,no recent explained fracture,no sudden unexplained fractures, andno previous musculoskeletal injuries. For physical activity, patient reportsexercises on a regular basis,recent increase in physical activity,good physical condition,discussed weightbearing activities, anddiscussed exercise habits. For additional lifestyle factors, patient reportsno tobacco useanddrinks alcohol (mild-moderate).Mental Status:For depression risk, patient reportsnever feels sad, empty, or tearful,no loss of interest in activities,no significant changes in weight,no sleep disturbances or insomnia,no agitation,no loss of energy,no feelings of worthlessness or guilt,no thoughts of suicide,no history of depression, andno history of mood disorders.Functional AbilityFor hearing, patient reportsno loss of hearing(mild hearing changes loss,has the ongoing tinnitus). For vision, patient reportsno vision problems. bilateral wrist painsees ortho, the patient had RENZO GRAHAM [address] [place], [address], [facility] 12/06/2023 14:03:12 5 text/html Annual WellnessReported by PatientSocial/Behaviora l HistoryFor diet and nutrition, patient reportshealthy diet,discussed vitamin and supplement use,discussed portion control,discussed maintaining calcium balance, anddiscussed diet improvement. For fracture risk, patient reportsno history of fractures,no recent explained fracture,no sudden unexplained fractures, andno previous musculoskeletal injuries. For physical activity, patient reportsexercises on a regular basis,recent increase in physical activity,good physical condition,discussed weightbearing activities, anddiscussed exercise habits(increased in [place]). For additional lifestyle factors, patient reportsno tobacco useanddrinks alcohol (mild-moderate).Mental Status:For depression risk, patient reportsnever feels sad, empty, or tearful,no loss of interest in activities,no significant changes in weight,no sleep disturbances or insomnia,no agitation,no loss of energy,no feelings of worthlessness or guilt,no thoughts of suicide,no history of depression, andno history of mood disorders.Functional AbilityFor hearing, patient reportsno loss of hearing. For vision, patient reportsno vision problems(last eye exam was in may).ROS as noted in the HPI RENZO GRAHAM [address] [place], [address], [facility] 12/25/2024 14:01:30 5 text/html ROS as noted in the HPI c/o unsteadiness, fatigue, shakiness the patient reports that she is getting fatigue, shakiness, lightheadedness, congestiondoes have hx of seasonal allergies, seems to be doing worse her, did improve somewhat with going to thethe patient reports that she has tried mucinexthe patient reports allergy symptomsrecommended Mattie and eye dropswill fu with update from patient RENZO GRAHAM [address] [place], [phone], [facility] 01/28/2025 10:47:41 5 text/html ROS as noted in the HPI c/o leg and back pain the patient developed lower leg pain and back pain (she was having it prior to her trip to [place]) used ibuprofen and APAP to good effect, but did not last and pain came backL leg; the patient gets pain more in the the upper quadsworse after PT and walking the patient and I discussed optionswill set up with imaging?disc involvement vs tendinitis RENZO GRAHAM [address] [place], [phone], [facility] 07/22/2025 11:32:28 OBGyn Episode No OBEpisode recorded.
--- OUTSIDE RECORDS SUMMARY | 2025-07-23 02:41 | XMS_ITS | Continuity of Care Document ---
Author Organization [facility] Address [address] [place] [address] [address] [place], [place] Phone [phone] Care Team Providers Care Sustainability Purchasing Agent Name Role Phone Danelle Elise MD Care Team Information Information Security Officer Unavailable Social History Type Date Description Comments Sex Female Sex Unknown
--- OUTSIDE RECORDS SUMMARY | 2025-07-23 02:41 | XMS_ITS | Clinical Summary ---
Author Organization Located Within [facility] Address [address] [place] [address] Phone Care Team Providers Care Supervisor Network Control Operators Name Role Phone Linh Marcial Fuentes DO Unavailable Virgie Lewis LEISURE STUDIES PROFESSOR Unavailable [phone] Marcial Melton DO Primary Care Provider [phone] Allergies Active Allergy Reactions Criticality Noted Date Comments Amoxicillin Rash Medium 11/13/2012 Sulfamethoxazole-Trimethoprim GI Upset 2019 Nitrofurantoin Monohyd/M-Cryst 06/25/2021 States in September 24 after rx for uti had itching all over body Sulfadiazine 03/28/2022 Medications venlafaxine (EFFEXOR-XR) 75 MG 24 hr capsule 1 tab daily 05/24/2019 Active mirtazapine (REMERON) 15 MG tablet 1 tablet before bedtime in the evening Active levothyroxine (SYNTHROID, LEVOTHROID) 100 MCG tablet Take 100 mcg by mouth every morning. Active metoprolol succinate (TOPROL-XL) 25 MG 24 hr tabletIndicatio ns:hold until PT takes blood pressure, okay to resume once systolic >110mmHg 01/25/2018 Active solifenacin (VESICARE) 5 MG tablet Take 1 tablet by mouth every morning. 12/25/2024 Active Hospital, Clinic, or Other Facility Administered Medication Ordered Dose Route Frequency Start Date End Date Status lidocaine (XYLOCAINE) 1% injection 0.5 mL 0.5 mL See Adm Inst See admin instructions 03/28/2022 Active bupivacaine HCl (MARCAINE) 0.25% injection 0.5 mL 0.5 mL See Adm Inst See admin instructions 03/28/2022 Active triamcinolone acetonide (KENALOG-40) 40 mg/mL injection 20 mg 20 mg See Adm Inst See admin instructions 03/28/2022 Active lidocaine (XYLOCAINE) 1% injection 1 mL 1 mL See Adm Inst See admin instructions 12/15/2022 Active triamcinolone acetonide (KENALOG-40) 40 mg/mL injection 40 mg 40 mg See Adm Inst See admin instructions 12/15/2022 Active lidocaine (XYLOCAINE) 1% injection 1 mL 1 mL See Adm Inst Once 05/06/2025 5 Active triamcinolone acetonide (KENALOG-40) 40 mg/mL injection 40 mg 40 mg See Adm Inst Once 05/06/2025 5 Active Active Problems Problem Noted Date Diagnosed Date Vaginal dryness, menopausal 04/27/2020 Assessment & Plan (05/03/2022 11:33 AM EDT): Em will continue with self care strategies to address vaginal dryness and will call if she feels she needs further evaluation/treatment. Assessment & Plan (04/27/2020 12:44 PM EDT): We discussed little/no soap in genital area, unscented products only, lube as needed. We also touched on vaginal estrogen therapy. She declines at this time but will call if opts to pursue. Aftercare following right knee joint replacement surgery 05/22/2019 Osteoarthritis of right knee 10/02/2018 Bilateral knee pain 04/09/2018 Family history of breast cancer in first degree relative 09/25/2017 Overview (05/03/2022): Sister - no BRCA testing Daughter (s/p Hodgkins lymphoma) - BRCA negative Em follows with [facility] Assessment & Plan (05/03/2022 11:35 AM EDT): Em will continue with yearly mammograms via [facility]; last 07/2021 Assessment & Plan (09/25/2017 12:30 PM EST): Family history of breast cancer (sister, daughter) reviewed. Her sister did not have BRCA testing; her daughter was negative. Em has breast surveillance at [facility], where her daughter was treated. She had mammogram last week and would like to continue with MRI surveillance as well. Encounters Date Type Department Care Team Description 05/06/2025 11:53 AM EDT - 05/06/2025 11:59 PM EDT Hospital Encounter [address] [address] Arminda Guillen MD Discharge Disposition: Home or Self Care 05/06/2025 11:52 AM EDT Hospital Encounter [address] [address] Arminda Guillen MD Discharge Disposition: Home or Self Care 05/06/2025 11:45 AM EDT Office Visit [facility] Orthopedics & Sports Medicine [address] [place] [address] Arminda Guillen MD Ulnar impaction syndrome, right (Primary Dx); Ulnar impaction syndrome, left from Last 3 Months Immunizations Immunization Administration Dates Next Due Influenza High-Dose Trivalen t Preservative Free IM 05/24/2019,06/28/2018 Influenza Quadrivalent w/ Preservative IM 06/28/2018 Pneumococcal conjugate PCV13 05/24/2019( Deferred: Not Available From [employer] - pt to F/U with PCP) Tdap 08/05/2013 Family History Medical History Relation Comments Breast cancer Daughter Hodgkins lymphoma Daughter Prostate cancer Father Other Mother from a car accident Lymphoma Sister 1 Relation Status Comments Brother 1 Alive Brother 2 Alive Brother 3 Alive Brother 4 Alive Brother 5 Alive Daughter Father Mother Sister 1 Sister 2 Alive Social History Tobacco Use Types Packs/Day Years [...] on file Sexual Orientation Not on file Last Filed Vital Signs Vital Sign Reading Time Taken Comments Blood Pressure 115/45 04/03/2025 3:35 PM EDT Pulse 69 04/03/2025 3:35 PM EDT Temperature 36.8 C (98.3 F) 06/14/2019 3:59 PM EDT Respiratory Rate 16 04/03/2025 3:35 PM EDT Oxygen Saturation 99% 04/03/2025 3:35 PM EDT Inhaled Oxygen Concentration - - Weight 70.8 kg (156 lb) 04/03/2025 3:35 PM EDT Height 162.6 cm (5' 4 ) 04/03/2025 3:35 PM EDT Body Mass Index 26.78 04/03/2025 3:35 PM EDT Plan of Treatment Upcoming Encounters Date Type Department Care Team (Late st Contact Info) Description 09/08/2025 9:00 AM EST Office Visit [facility] Orthopedics & Sports Medicine [address] [place] [address] Arminda Guillen MD [address] [place] [address] [facility] [place] [address] 11/27/2025 10:15 AM EDT Office Visit [facility] Orthopedics & Sports Medicine [address] [place] [address] Arminda Guillen MD [address] [place] [address] [facility] [place] [address] Health Maintenance Due Date Last Done Comments DEPRESSION SCREENING 1965 COLOGUARD 1998 FIT TEST 1998 FOBT 1998 SIGMOIDOSCOPY 1998 VIRTUAL COLONOSCOPY 1998 ZOSTER VACCINES (1 of 2) 2003 PAP SMEAR 09/08/2021 09/08/2016 MAMMOGRAM 08/03/2023 08/03/2021, 12/18/2018 Adult Td,Tdap Booster 08/05/2023 08/05/2013 INFLUENZA VACCINE (#1) 2025 , 07/13/2023, 06/28/2022, Additional history exists COVID-19 VACCINE (2024- season) 2025 09/05/2023, 06/28/2022, 06/29/2021, Additional history exists TSH LEVEL 01/10/2026 01/10/2025, 06/04, 12/22/2022, Additional history exists RSV VACCINE (1 - 1-dose 75+ series) 2028 COLONOSCOPY 07/15/2029 07/15/2022 COLORECTAL CANCER SCREENING 07/15/2029 LIPID PANEL 12/30/2029 12/30/2024, 06/04, 10/11/2018, Additional history exists HEPATITIS C SCREENING Completed 10/11/2018, 019 OSTEOPOROSIS SCREENING INITIAL (ONE-TIME) Completed 12/26/2018 PNEUMOCOCCAL VACCINES (50+ years) Completed 08/15/2024 SMOKING STATUS SCREENING (Once After 26 Yrs) Completed 05/06/2025 HEPATITIS A VACCINES Aged Out No long er eligible based on patient's age to complete this topic HIB VACCINES Aged Out No longer eligi ble based on patient's age to complete this topic MENINGOCOCCAL VACCINES (ACWY) Aged Out No longer eligible based on patient's age to complete this topic MENINGOCOCCAL VACCINES (B) Aged Out N o longer eligible based on patient's age to complete this topic Medical Devices Implanted Type Area [employer] Device Identifier Shelf Expiration Date Model / Serial / Lot Peg 34x8.5mm Button Patella Knee Vanguard Uhmwpe 3 Series A Standard - [id number] Implanted:Qty: 1 on 05/22/2019 by Eddie Schulte MD at [facility] STANDARD Right: Knee [employer] 04/23/2024 [id number] / / [id number] Box Component 65.0mm Femoral Knee Vanguard Interlok Vining Posterior Stabilized Open Cemented Right - [id number] Implanted:Qty: 1 on 05/22/2019 by Eddie Schulte MD at [facility] Right: Knee [employer] 01/03/2029 [id number] / / [id number] Tray Beam 67mm Tibial Primary Vanguard Vining I Revision Interlock Cemented - [id number] Implanted:Qty: 1 on 05/22/2019 by Eddie Schulte MD at [facility] Right: Knee [employer] 11/09/2028 [id number] / / [id number] Cement Bone Biomet Standard R 1x40 Us - [id number] Implanted:Qty: 1 on 05/22/2019 by Eddie Schulte MD at [facility] Right: Knee AILIN / DIV [employer] 02/01/2023 [id number] / / [id number] Knee Insert 63/[id number] Implant [employer] [place] [employer] 05 - [id number] Implanted:Qty: 1 on 05/22/2019 by Eddie Schulte MD at [facility] Right: Knee [employer] 01/16/2024 [id number] / / [id number] Procedures Procedure Name Priority Date/Time Associated Diagnosis Comments XR WRIST 3 OR MORE VIEWS (LEFT) Routine 05/06/2025 12:01 PM EDT Ulnar impaction syndrome, left XR WRIST 3 OR MORE VIEWS (RIGHT) Routine 05/06/2025 12:01 PM EDT Ulnar impaction syndrome, right THYROID STIMULATING HORMONE (TSH) Routine 01/10/2025 1:39 PM EDT Nocturia LIPID PANEL Routine 12/30/2024 9:28 AM EDT Routine general medical examination at a health care facility HM COLONOSCOPY FOR RESULT ENTRY ONLY Routine 07/15/2022 HM MAMMOGRAPHY Routine 08/03/2021 BD DXA AXIAL (SPINE) WITH HIP Routine 12/26/2018 8:41 AM EDT Osteopenia, unspecified location HEPATITIS C ANTIBODY, QUALITATIVE Routine 10/11/2018 9:25 AM EST Routine medical exam HM PAP SMEAR FOR RESULT ENTRY ONLY Routine 09/08/2016 from Last 3 Months or Most Recently Relevant to Health Maintenance Results * XR WRIST 3 OR MORE VIEWS (LEFT) (05/06/2025 12:01 PM EDT) Narrative SYSTEMGENERATED, DOCUMENTATION - 05/06/2025 12:02 PM EDT This image report has been auto-finalized and has not been read by a Radiologist. Interpretation has been included in the provider encounter note for this date of service. us Arminda Guillen MD IMG XR UPPER EXTREMITY Final Result * XR WRIST 3 OR MORE VIEWS (RIGHT) (05/06/2025 12:01 PM EDT) Narrative SYSTEMGENERATED, DOCUMENTATION - 05/06/2025 12:01 PM EDT This image report has been auto-finalized and has not been read by a Radiologist. Interpretation has been included in the provider encounter note for this date of service. Arminda Guillen MD IMG XR UPPER EXTREMITY Final Result * TSH (01/10/2025 1:39 PM EDT) TSH 0.92 0.27 - 4.20 uIU/mL [facility] Blood 01/10/2025 1:39 PM EDT 01/10/2025 3:31 PM EDT Jane MULLER LAB BLOOD BKR ORDERABLES Fi nal Result [facility] [address] [place] [address] * (ABNORMAL) Lipid panel (12/30/2024 9:28 AM EDT) Pathologist [facility] HDL 61 mg/dL [facility] Comment: Interpretation <40 mg/dL: Low HDL cholesterol (major risk factor for CHD) Greater than or equal to 60 mg/dL: High HDL cholesterol ( negative risk factor for CHD) HDL - cholesterol is affected by a number of factors, e.g. smoking, excerise, hormones, sex and age. CHOLESTEROL 273(H) 0 - 240 mg/dL [facility] TRIGLYCERIDES 93 30 - 160 mg/dL [facility] LDL 193(H) 50 - 129 mg/dL [facility] Comment: LDL levels in terms of risk for coronary heart disease: <100 mg/dL: Optimal 100-129 mg/dL: Near or above optimal 130-159 mg/dL: Borderline high 160-189 mg/dL: High >190 mg/dL: Very High CARDIAC RISK RATIO 4.5(H) 3.3 - 4.4 C [facility] Blood 12/30/2024 9:28 AM EDT 12/30/2024 9:31 AM EDT Jane MULLER LAB BLOOD BKR ORDERABLES Fi nal Result [address] [address] * COLONOSCOPY FOR RESULT ENTRY ONLY (07/15/2022) Pathologist Count includes the [facility] Colonoscopy External Historical Provider HEALTH MAINTENANCE Final Result * MAMMOGRAPHY FOR RESULT ENTRY ONLY (08/03/2021) Pathologist Count includes the [facility] Mammogram Normal, done at [facility] Historical Provider HEALTH MAINTENANCE Final Result * BD DXA AXIAL (SPINE) WITH HIP [...] BD BONE DENSITY DEXA Fin al Result * Hepatitis C antibody, qualitative (10/11/2018 9:25 AM EST) HCV Negative Negative [facility] Comment: This is a screening test and should be confirmed with molecular testing Blood 10/11/2018 9:25 AM EST 10/11/2018 9:31 AM EST December Jamal SIMON LAB BLOOD BKR ORDERABLES Fin al Result [facility] [address] [place] [address] * PAP SMEAR FOR RESULT ENTRY ONLY (09/08/2016) HM Pap smear NIL,HPVneg ative -(16/18) us Historical Provider HEALTH MAINTENANCE Final Result from Last 3 Months or Most Recently Relevant to Health Maintenance Insurance [place] [id number] [employer] MEDEX SUPPLEMENT MEDICARE PART A & [place] [address] [place] [address] [employer] MEDEX SUPPLEMENT MEDICARE PART A & B [employer] MEDEX SUPPLEMENT MEDICARE PART A & B [employer]EX SUPPLEMENT MEDICARE PART A & B [employer] MEDEX SUPPLEMENT MEDICARE PART A & B [employer] MEDEX SUPPLEMENT MEDICARE PART A & B [employer] MEDEX SUPPLEMENT MEDICARE PART A & B [employer] MEDEX SUPPLEMENT MEDICARE PART A & B [employer] MEDEX SUPPLEMENT Advance Directives For more information, please contact: [phone] (9AM - 5PM [facility], Monday-Monday) Documents on File Type Date Recorded Patient Fashion Model Expl anation Healthcare Proxy 05/27/2019 10:16 AM * Full Code (Presumed) (Latest Code Status on File) Date Activated Date Inactivated Comments 05/22/2019 7:35 PM 05/24/2019 2:29 PM * Full Code (Presumed) Date Activated Date Inactivated Comments 05/22/2019 11:12 AM 05/22/2019 7:35 PM Care Teams Supervisor Network Control Operators Relationship Specialty Start Date End Date Marcial Melton DO [address] [place] [id number] PCP - General Internal Medicine 04/03/25 Marcial Melton DO [email or web address] Historical LMR Provider 06/25/17 Virgie Lewis NP [address] [place] [id number] [email or web address] Historical LMR Provider 06/25/17 Additional Source Comments The information contained in this document represents components of the legal health record. It is not the complete legal health record.Located Within [facility]
--- OUTSIDE RECORDS SUMMARY | 2025-07-23 02:41 | XMS_ITS | Encounter Summary ---
Author Organization [facility] Address [address] [place] [address] Phone Care Team Providers Care Acting Section Chief Name Role Phone Marcial Melton Primary Care Provider [phone] Marcial Melton Gina DO Unavailable Virgie Lewis APPOINTMENT MANAGER Unavailable [phone] Linh Marcial Gina DO Primary Care Provider [phone] Encounter Details Date Type Department Care Team (Late st Contact Info) Description 04/01/2022 Procedure Pass [address] [place] [address] Social History Tobacco Use Types Packs/Day Years [...] AM EST Office Visit [facility] Orthopedics & Sports Medicine [address] [place] [phone] Arminda Guillen MD [address] [place] [address] Orthopedics & Sports Medicine, [facility] [place] [address] 11/27/2025 10:15 AM EDT [facility] [address] [place] [phone] Arminda Guillen MD [address] [place] [address] Orthopedics & Sports Medicine, [facility]. [place], [place] [phone] documented as of this encounter Visit Diagnoses Not on filedocumented in this encounter Care Teams Acting Section Chief Relationship Specialty Start Date End Date Marcial Melton DO PCP - General 03/04/14 04/02/25 Marcial Melton DO [address] [place] [address] PCP - General Internal Medicine 04/03/25 Marcial Melton DO Historical LMR Provider 06/25/17 Virgie Lewis NP [address] [place] [address] Historical LMR Provider 06/25/17 documented as of this encounter Additional Source Comments The information contained in this document represents components of the legal health record. It is not the complete legal health record.[facility]
== END 2025-07-22 11:37 | disposition home or self-care (01) ==
LOC: HO.MANLDS 11:36
PROVIDERS: Visit Provider Physician Assistant
DX: I10 Essential (primary) hypertension (principal); Z13.1 Encounter for screening for diabetes mellitus
CPT/HCPCS: 36415; 80053; 80061; 83036; 84439; 84443; 85025